=== PATIENT | male | born 1965 ===

== ENCOUNTER 2017-02-07 15:50 | Emergency (ER) | payer OTHER ==
[2017-02-07 16:29] VITALS: BP 135/88
--- NOTE | 2017-02-07 16:44 | UC ---
Skin Complaint HPI - HPI Summary HPI Summary: pt reports gradual onset of tender area on left posterior upper thigh that began ~ 2 weeks ago. Pt states that he has been applying a hot pack to area, has drained purulent drainage and notes improvement to the area. - History of Current Complaint Chief Complaint: UCSkin Time Seen by Provider: 02/07/17 16:25 Stated Complaint: LEFT LEG COMPLAINT Hx Obtained From: Patient Onset/Duration: Gradual Onset, Lasting Weeks, Still Present Skin Exposure Onset/Duration: Weeks Ago Timing: Constant Onset Severity: Moderate Current Severity: Mild Location: Discrete - left posterior upper Character: Redness Aggravating Factor(s): Touch Alleviating Factor(s): Heat - warm compress Associated Signs & Symptoms: Positive: Drainage, Tenderness - Allergy/Home Medications Allergies/Adverse Reactions: Allergies Allergy/AdvReac Type Severity Reaction Status Date / Time No Known Allergies Allergy Verified 02/07/17 16:28 Home Medications: Home Medications Naproxen [Naproxen 500 mg] 500 mg PO BID 02/07/17 [History Confirmed 02/07/17] Review of Systems Constitutional: Negative Skin: Other - erythema, firm mass, purulent drainage Eyes: Negative ENT: Negative Respiratory: Negative Cardiovascular: Negative Gastrointestinal: Negative Genitourinary: Negative Motor: Negative Neurovascular: Negative Musculoskeletal: Negative Neurological: Negative Psychological: Negative Is Patient Immunocompromised?: No All Other Systems Reviewed And Are Negative: Yes PMH/Surg Hx/FS Hx/Imm Hx Previously Healthy: Yes - Family History Known Family History: Positive: Cardiac Disease - Social History Occupation: Employed Full-time Lives: With Family Alcohol Use: None Substance Use Type: None, Marijuana Substance Use Comment - Amount & Last Used: 3 days Smoking Status (MU): Never Smoked Tobacco Have You Smoked in the Last Year: No Physical Exam Triage Information Reviewed: Yes Appearance: Well-Appearing Vital Signs: Initial Vital Signs Temp 98.3 F 02/07/17 16:21 Pulse 67 02/07/17 16:21 Resp 20 02/07/17 16:21 BP 135/88 02/07/17 16:21 Eye Exam: Normal ENT Exam: Normal Dental Exam: Normal Neck exam: Normal Respiratory Exam: Normal Cardiovascular Exam: Normal Musculoskeletal Exam: Normal Psychological Exam: Normal Skin Exam: Other - erythematous area ~ 5 cm in diameter, with peelings skin, firm masses, no drainage, Course/Dx - Course Course Of Treatment: I discussed with pt the need to warm pack area, good skin hygiene and to take the antibiotic as presc ribed. If no improvement pt needs to follow up with PCP or see the general surgeon as referred. If immediate attention needed pt was directed to ER. - Differential Diagnoses - Skin Complaint Differential Diagnoses: Abscess, MRSA - Diagnoses Provider Diagnoses: abscess Discharge - Discharge Plan Condition: Stable Disposition: HOME Prescriptions: DOXYcycline CAP(*) [DOXYcycline 100MG CAP(*)] 100 mg PO Q12H #20 cap Patient Education Materials: Abscess (ED) Referrals: [facility] [Outside] Sumanth Mckinnon [Medical Doctor] - Additional Instructions: Please follow up with your PCP or return to clinic as needed. You have been provided with a referral to a general surgeon as requested for [id number] up as needed.
== END 2017-02-07 16:57 | disposition home or self-care (01) ==
LOC: UCCORT 15:50
DX: L02.416 Cutaneous abscess of left lower limb (principal)
CPT/HCPCS: 99201; G0463

== ENCOUNTER 2017-04-06 11:32 | Emergency (ER) | payer OTHER ==
[2017-04-06 14:07] VITALS: BP 142/86
--- NOTE | 2017-04-06 14:18 | UC ---
Skin Complaint HPI - HPI Summary HPI Summary: left 3rd toe pain x 3 days + redness, swelling, no injury has been using warm soakes with some improvements no fever no chills - History of Current Complaint Chief Complaint: UCLowerExtremity Time Seen by Provider: 04/06/17 14:09 Stated Complaint: LFT FOOT COMPLAINT Hx Obtained From: Patient Onset/Duration: Gradual Onset, Lasting Days - 3, Still Present Timing: Constant Onset Severity: Moderate Current Severity: Moderate Pain Intensity: 5 Location: Discrete - left 3rd toeanil Character: Swelling, Pain, Redness, Raised, Painful Aggravating Factor(s): Touch Alleviating Factor(s): Other - warm soakes Associated Signs & Symptoms: Positive: Tenderness. Negative: Drainage - Allergy/Home Medications Allergies/Adverse Reactions: Allergies Allergy/AdvReac Type Severity Reaction Status Date / Time No Known Allergies Allergy Verified 04/06/17 14:07 Review of Systems Constitutional: Negative Skin: Negative Eyes: Negative ENT: Negative Respiratory: Negative Is Patient Immunocompromised?: No All Other Systems Reviewed And Are Negative: Yes PMH/Surg Hx/FS Hx/Imm Hx Previously Healthy: Yes - Surgical History Surgical History: None - Family History Known Family History: Positive: Cardiac Disease - Social History Alcohol Use: Rare Substance Use Type: Marijuana Substance Use Comment - Amount & Last Used: 3 days Smoking Status (MU): Never Smoked Tobacco Have You Smoked in the Last Year: No Physical Exam Triage Information Reviewed: Yes Appearance: Well-Appearing, No Pain Distress, Well-Nourished Vital Signs: Initial Vital Signs Temp 97.6 F 04/06/17 14:04 Pulse 54 04/06/17 14:04 Resp 18 04/06/17 14:04 BP 142/86 04/06/17 14:04 Pulse Ox 100 04/06/17 14:04 Vital Signs Reviewed: Yes Eyes: Positive: Conjunctiva Clear ENT: Positive: Normal ENT inspection, Hearing grossly normal, Pharynx normal Neck exam: Normal Respiratory: Positive: Chest non-tender, Lungs clear, Normal breath sounds Cardiovascular Exam: Normal Cardiovascular: Positive: RRR, No Murmur, Pulses Normal Skin: Positive: Other - paronychia left 3th toenail , + erythema , tenderness , Course/Dx - Course Course Of Treatment: paronychia left 3rd toe - Diagnoses Provider Diagnoses: paronychia left 3rd toe Procedures - Incision and Drainage Site: left 3rd toe paronychia Anesthesia: Other - none Instrument(s): Needle - 18 g Discharge - Discharge Plan Condition: Stable Disposition: HOME Prescriptions: Cephalexin CAP* [Keflex CAP*] 500 mg PO TID #21 cap Patient Education Materials: Paronychia (ED) Referrals: No Primary Care Phys,NOPCP [Primary Care Provider] - If Needed
== END 2017-04-06 15:03 | disposition home or self-care (01) ==
LOC: UCCORT 11:32
DX: L03.032 Cellulitis of left toe (principal); F12.90 Cannabis use, unspecified, uncomplicated
CPT/HCPCS: 10060; 99212; G0463